=== PATIENT | female | born 1980 | race Caucasian/White ===

== ENCOUNTER → 2024-12-04 08:00 | Outpatient (BNV) | payer MEDICARE, SELFPAY | PROVIDERS: Visit Provider Psychiatry & Neurology Psychiatry | DX: F31.81 Bipolar II disorder (principal); F45.42 Pain disorder with related psychological factors | CPT/HCPCS: 90792; 99214 ==

== ENCOUNTER 2024-12-19 11:30 | Outpatient (RCR) | payer MEDICARE, SELFPAY ==
[2024-12-04 11:51] VITALS: BP 104/68; PULSE 64; TEMP 36.9
[2024-12-04 11:54] VITALS: BMI 18.2
--- NOTE | 2024-12-04 23:05 | P.HPPSP_ITS ---
HPI Date of Service: 12/04/24 Chief Complaint: persistant depressive disorder Sources of Information: patient interviewed, chart reviewed and crisis/core team assessment reviewed HPI Narrative: This is the 1st [facility] admission for this 44-year-old female with Bipolar depression, anxiety, ADHD, PTSD, and remote history of cocaine use in remission, complicated orthopedic hx with chronic neck and back pain (unclear etiology), who is being stepped down from IPLOC status post suicide attempt back in September. Patient reports that she had felt off for quite some time, reporting the only anxiety and depression but that she was having periods of feeling spacey and l ost in her head where intrusive thoughts of suicide were emerging. she reports symptoms were gradually worsening over several weeks which came to ahead when she went to see her outpatient treaters and told them that she felt off , after being dismissed once again following her therapy appointment she went home and intentionally, but impulsively, overdosed on her medications ( out of frustration ) which resulted in being medically hospitalized at [facility] for 5 days and then was transferred for psychiatric hospitalization at [facility] in [facility] from October 27 to November 01. She continues to struggle with depressed mood and anxiety since she was discharged she is really no better off than she was prior to hospitalization. Her mood continues to vary, somedays I am feeling okay some days and feeling bad again other days it varies. suicidal thoughts just \come out of nowhere... I will be cooking and my mind goes totally blank. my boyfriend catches me staring into space and zone out. she believes this is not a problem she has had in the past and denies developmental history for any attentional or focus issues. She is prescribed stimulant medications and is on Concerta 54 mg as well as Wellbutrin 400 mg/d both of which she says have been prescribed since 2000 for depression and low energy. she has also been on topiramate 300 mg/d for nerve pain since 2000 and says she feels none of these medications are particularly helpful to her aside from perhaps Concerta which without it she says she would not be able to get out of bed. gabapentin more recently was added to help with nerve pain but has not been able to tolerate more than 600 mg at bedtime. Medication has been helpful with sleep and improved appetite and some weight gain. She expresses frustration that she is on the same medication regime as she was prior to hospitalization and that no changes were made during either of her stays. I do not feel like these medications are working I keep telling everyone. Past Psychiatric History: IPLOC x1: [facility] at 09/2024 PHP: [facility] x1: 09/2024 intention overdose requiring medical admission SIB: Previous medications: Prozac, Zoloft, Celexa, Lexapro, Effexor, Viibryd, Abilify, Seroquel She is currently on wait list for Spravato Current medications: Wellbutrin 300 mg XL q.a.m. Wellbutrin 100 mg SR q.d. in afternoon Methylphenidate extended release 54 mg q.a.m. Lamotrigine 250 mg daily Gabapentin 600 mg q.h.s. Topiramate 150 mg b.i.d. Lorazepam Restasis Oxycodone 20 mg OxyContin 10 mg [facility] Medical History (Updated 12/10/24 @ 07:30 by Su Jang MD) Chronic neck pain Surgical History (Updated 12/04/24 @ 11:50 by Salma Rois RN) H/O spinal fusion Diagnostics Vital Signs (24Hr): Vital Signs - 24 hr 12/04/24 11:51 Temperature 98.4 F Pulse Rate 64 Blood Pressure 104/68 BMI result Body Mass Index 18.2 Meds/Allergies Meds Home Medications ?Medication ?Instructions ?Recorded ?Confirmed ?Type bupropion HCl 100 mg tablet,12 hr 100 mg PO DAILY 12/04/24 12/04/24 History sustained-release bupropion HCl 300 mg 24 hr tablet, 300 mg PO QAM 12/04/24 12/04/24 History extended release buspirone 15 mg tablet 15 mg PO BID 12/04/24 12/04/24 History cyclosporine 0.05 % eye drops in a 1 drp ophthalmic (eye) Q12H 12/04/24 12/04/24 History dropperette (Restasis) gabapentin 600 mg tablet 600 mg PO BEDTIME 12/04/24 12/04/24 History lamotrigine 200 mg tablet 200 mg PO DAILY 12/04/24 12/04/24 History lamotrigine 25 mg tablet 50 mg PO DAILY 12/04/24 12/04/24 History lorazepam 0.5 mg tablet 1.5 mg PO DAILY PRN Severe Anxiety 12/04/24 12/04/24 History and Panic methylphenidate HCl 54 mg 54 mg PO DAILY 12/04/24 12/04/24 History tablet,extended release 24 hr (Concerta) oxycodone 10 mg tablet,crush 10 mg PO BID 12/04/24 12/04/24 History resistant,extended release 12 hr (OxyContin) oxycodone 20 mg tablet 20 mg PO QID PRN severe pain 12/04/24 12/04/24 History Allergies Allergies Allergy/AdvReac Type Severity Reaction Status Date / Time azithromycin [AZITHROMYCIN] Allergy Unknown BLOATING, Unverified 04/17/20 19:04 ABD PAIN risperidone [From RISPERDAL] Allergy Unknown DID NOT Unverified 04/17/20 19:04 TOLERATE topiramate [Topamax] Allergy Unknown Verified 07/14/17 00:00 trazodone [TRAZODONE] Allergy Unknown DID NOT Unverified 04/17/20 19:04 TOLERATE Mental Status Exam Mental Status Exam Narrative: Alert, oriented, in no acute distress. Normal gait. Mild psychomotor agitation, and muscle tension, restlessness but remained seated for duraiton of encounter. Otherwise calm demeanor, cooperative somewhat guarded. Eye contact maintained. Mood depressed, affect constricted, irritable edge with mild lability. Speech normal. Thought process linear, coherent. Thought content related to stressors, transient helplessness, no hopelessness noted, denies SI, intention, urge or p kely. Denies any aggressive ideation or HI. No paranoia or delusional content elicited. No evidence of psychosis. Insight and judgment - fair but adequate Assessment & Plan Assessment & Plan (1) Bipolar II disorder: Status: Acute Code(s): F31.81 - Bipolar II disorder (2) Other stimulant use, unspecified with stimulant-induced mood disorder: Status: Acute Code(s): F15.94 - Other stimulant use, unspecified with stimulant-induced mood disorder (3) Pain disorder associated with psychological and physical factors: Status: Acute Code(s): F45.42 - Pain disorder with related psychological factors (4) PAMELLA (generalized anxiety disorder): Status: Acute Code(s): F41.1 - Generalized anxiety disorder (5) Cognitive and behavioral changes: Status: Acute Code(s): R41.89 - Other symptoms and signs involving cognitive functions and awareness; R46.89 - Other symptoms and signs involving appearance and behavior Assessment and Plan: r/o iatrogenic cognitive impairment (related to topiramate) (6) History of ADHD: Status: Acute Code(s): Z86.59 - Personal history of other mental and behavioral disorders (7) History of cocaine abuse: Status: Acute Code(s): F14.11 - Cocaine abuse, in remission Plan Admit to [facility] VS reviewed: afebrile, BP 104/68;?64 bpm lower dose of Topemax to 100 mg BID continue other regular medications? Routine lab work ordered as indicated EKG, routine for baseline QTc for medication considerations as indicated UDS as indicated [facility] reviewed - MPH 54 mg (dating back to 2022 or earlier); oxycodone IR 20 mg, fills #120/monthly (dating back to 2022 or earlier). Oxycontin ER 10 mg #60 monthly (previously rxed 30 mg up until 09/2023, on 10 mg since). Morphine ER 30 mg previously rxed 06/2023). DIazepam single script in 12/2022. Also Topiramate is listed under Allergies in chart, will clarify with patient Continue to monitor as per protocol Patient educated on: diagnosis, medication risk/benefits and medical condition Informed Consent: understands Reason for continued partial hosp. stay Substantial Risk for: inability to function, rapid decompensation and med/psych decompensation Certification I certify that partial hospital treatment is medically necessary due to the symptoms and problems resulting from the patient's mental illness and the failure to treat the patient at the partial hospital level of care would likely result in the patient requiring inpatient psychiatric care which could not be prevented at a less intensive level of care. Time Spent With Patient Time: Total time managing care of this patient today _90___ minutes.
--- NOTE | 2024-12-06 15:07 | HO.PHP ---
Clients case was opened and reviewed in teams today.
--- NOTE | 2024-12-13 18:15 | HO.PHPPROGNO ---
Subjective Subjective Date of Service: 12/12/24 Reason For Visit: persistant depressive disorder Interim History: Patient was seen for follow-up. She had approached staff asking to leave early, expressing frustration with her lack of progress. She tells me she is here because her family wants her here ?I just feel like I am getting baby-sat (following serious overdose and subsequent IPLOC). She continues to report that her medications are not helpful to her aside from the Concerta which she says she would not be able to function or get out of bed without. Still reports mood is very depressed with vague SI denies any intention urge or plan to harm self. She lowered topiramate as per plan, currently at 100 mg twice a day down from 150 mg twice a day. She has not notice any change in her anxiety or mood and would like to continue tapering. She was very focused on medications today. She is preoccupied with getting a lorazepam refill in reports having had difficulty obtaining the script through her PCP despite her PCP reportedly agreeing to continue prescribing her 1 in the morning and 2 for sleep. She was last seen by her psychiatrist Dr. Chavarria in October per [facility] last script was ordered and filled on July/2024. There is no current active prescription. Without speaking with her psychiatrist I am not comfortable refilling this medication as I am not I am unclear what his intention is. She continues on wait list for Spravato. She reached out in the interim was told the there still a wait list with least 20 people ahead of her. We discussed TMs as an alternative plan or at least something she could consider in the meantime which she says she is open to she was also open to starting Latuda. Denies thoughts of harming self or others. Medication Compliance: Yes Side effects from medications: No Attending Groups: Yes Review of Systems Acute medical concerns: No Mental Status Exam Mental Status Exam Narrative: Alert, oriented, in no acute distress. Normal gait. Mild psychomotor agitation, and muscle tension, restlessness but remained seated for duraiton of encounter. Otherwise calm demeanor, cooperative somewhat guarded. Eye contact maintained. Mood depressed, affect constricted, irritable edge with mild lability. Speech normal. Thought process linear, coherent. Thought content related to stressors, transient helplessness, no hopelessness noted, denies SI, intention, urge or plan. Denies any aggressive ideation or HI. No paranoia or delusional content elicited. No evidence of psychosis. Insight and judgment - fair but adequate Diagnostics Vital Signs (24Hr): BMI result Body Mass Index 18.2 Assessment & Plan Assessment & Plan (1) Bipolar II disorder: Status: Acute Code(s): F31.81 - Bipolar II disorder (2) Other stimulant use, unspecified with stimulant-induced mood disorder: Status: Acute Code(s): F15.94 - Other stimulant use, unspecified with stimulant-induced mood disorder (3) Pain disorder associated with psychological and physical factors: Status: Acute Code(s): F45.42 - Pain disorder with related psychological factors (4) PAMELLA (generalized anxiety disorder): Status: Acute Code(s): F41.1 - Generalized anxiety disorder (5) Cognitive and behavioral changes: Status: Acute Code(s): R41.89 - Other symptoms and signs involving cognitive functions and awareness; R46.89 - Other symptoms and signs involving appearance and behavior Assessment and Plan: r/o iatrogenic cognitive impairment (related to topiramate) (6) History of ADHD: Status: Acute Code(s): Z86.59 - Personal history of other mental and behavioral disorders (7) History of cocaine abuse: Status: Acute Code(s): F14.11 - Cocaine abuse, in remission Plan continue PHP referral placed for TMS start lurasidone 20 mg qd w supper x 2 days then increase as tolerated to 40 mg to target bipolar depression lower dose of Topemax to 150mg/d (split 100/50) x 3 days then to 50 mg BID continue Lamictal 250 mg qd continue Wellbutrin XL 300 mg qam continue Wellbutrin SR 100 mg qam continue COncerta 54 mg qam will consider further titrating Buspar 15 mg BID continue other regular medications: Restasis, oxycodone 10 mg BID, oxycodone 20 mg QID prn severe pain, Routine lab work ordered as indicated EKG, routine for baseline QTc for medication considerations as indicated VS reviewed: afebrile, BP 104/68;?64 bpm Continue to monitor Patient educated on: diagnosis, medication risk/benefits, substance abuse and TMS Informed Consent: understands Reason for contiued partial hosp. stay Substantial Risk for: inability to function and med/psych decompensation Certification I certify that partial hospital treatment is medically necessary due to the symptoms and problems resulting from the patient's mental illness and the failure to treat the patient at the partial hospital level of care would likely result in the patient requiring inpatient psychiatric care which could not be prevented at a less intensive level of care. Total time managing care of this patient today _30 ___ minutes. Discharge Plan Discharge Attending provider: Su Jang Medications: New lurasidone 40 mg tablet 40 mg PO QPM Qty: 20 0RF Rx Instructions: must administer with food (at least 350 calories) Continued lamotrigine 200 mg tablet 200 mg PO DAILY Rx Instructions: Last filled 11/27/24 bupropion HCl 100 mg Tablet Sustained-Release 12 Hr 100 mg PO DAILY buspirone 15 mg Tablet 15 mg PO BID Rx Instructions: Last filled 10/31/24 bupropion HCl 300 mg Tablet Extended Release 24 Hr 300 mg PO QAM Patient Comments: Patient stated she takes Bupropion 300 mg and 100 mg tab. According to Keith Goodman METAL SPONGE MAKING MACHINE OPERATOR medication list dated 11/14/24 that she provided us patient is on both medications. Pharmacy stated on 10/03/24 Keith Goodman inactivated the medication. Patient stated she was never told this and is currently taking 300 mg tab and 100 mg tab of Bupropion together. methylphenidate HCl [Concerta] 54 mg Tablet Extended Release 24hr 54 mg PO DAILY Rx Instructions: Last filled 11/27/24. gabapentin 600 mg tablet 600 mg PO BEDTIME Rx Instructions: Last filled 11/04/24 cyclosporine [Restasis] 0.05 % dropperette 1 drp ophthalmic (eye) Q12H Rx Instructions: Last filled September 2024. Changed topiramate 100 mg tablet 100 mg PO BID Qty: 30 0RF Rx Instructions: Medication currently waiting for apple picking supervisor at pharmacy. No Action lamotrigine 25 mg tablet 50 mg PO DAILY Rx Instructions: Last filled 10/03/24 #90. lorazepam 0.5 mg tablet 1.5 mg PO DAILY PRN (Reason: Severe Anxiety and Panic) Patient Comments: Patient stated her prescriber is waiting for a PA on this medication. Rx Instructions: Last filled 07/24 # 30 tabs. TAKE 3 TABLETS BY MOUTH EVERY DAY NEEDED oxycodone 20 mg tablet 20 mg PO QID PRN (Reason: severe pain) Rx Instructions: Last filled 11/09/24 oxycodone [OxyContin] 10 mg tablet,oral only,ext.rel.12 hr 10 mg PO BID Rx Instructions: Last filled 11/09/24 Print Language: Djiboutian
--- NOTE | 2024-12-17 10:16 | HO.PHPPROGNO ---
Subjective Subjective Date of Service: 12/17/24 Reason For Visit: persistant depressive disorder Healthcare Proxy: No Guardianship: No Medical Problems Affecting Mental Status: No Interim History: 44 yo -WF reports that struggling with not feeling helped by anything here- and why psychiatrist here decreased topamax decreased- Latuda was not tolerable - the depression is bad- had an ok weekend- not had in a long time- moments fine, next moment not- scary - doesn't know what to do - feels no strategies work - latuda 40mg nausea/dizzy and spacey - took it for 3 days- Continues to struggle with sleep as well - Medication Compliance: Yes Side effects from medications: Yes (nausea/dizziness) Attending Groups: Yes Review of Systems Acute medical concerns: No Review of Systems: as above Mental Status Exam Mental Status Exam Patient Appearance: Well Grooomed (casual) and Appropriate Patient Orientation: Person, Place, Time and Situation Level of Consciousness: Awake Patient Behavior: Guarded and Good Eye Contact Mood Description: Angry Affect Description: Blunted Patient Cognition Impaired: No Ability to Follow Directions: Good Speech Pattern: Clear Hallucinations: None Delusions: Not Present Perceptual Disturbances: Depersonalization Thought Process: Intact and Goal Oriented Thought Content: positive for Intact, positive for Goal Oriented and positive for Suicidal Ideation (no plan/intent) Depressive Symptoms: Increased Irritability and Difficulty Sleeping Judgement: Fair Diagnostics Vital Signs (24Hr): BMI result Body Mass Index 18.2 Assessment & Plan Assessment & Plan (1) Bipolar II disorder: Status: Acute Code(s): F31.81 - Bipolar II disorder (2) Pain disorder associated with psychological and physical factors: Status: Acute Code(s): F45.42 - Pain disorder with related psychological factors Plan Increased wellbutrin to 450mg from 400mg? - to address depression try taking lutada in pm with food at 20mg (will split the 40mg tabs) add Gabapentin 300mg to 600mg at bed to help sleep provider called [facility] left message to clarify lorazzepam rx that was sent in october and ? need for pay reviewed with patient risk combining with gabape, opiates and benzos- which is likely why it requires auth= and maybe other medications changes will help - with underlying factor Also recommend 1-2 more days in [facility] to check in with provider and see how this went Patient educated on: medication risk/benefits and therapeutic strategies Informed Consent: understands Reason for contiued partial hosp. stay Substantial Risk for: rapid decompensation Certification I certify that partial hospital treatment is medically necessary due to the symptoms and problems resulting from the patient's mental illness and the failure to treat the patient at the partial hospital level of care would likely result in the patient requiring inpatient psychiatric care which could not be prevented at a less intensive level of care. Total time managing care of this patient today ____ minutes. Discharge Plan Discharge Attending provider: Su Jang Medications: New bupropion HCl [Wellbutrin XL] 150 mg tablet extended release 24 hr 150 mg PO QAM MDD 450 30 Days Qty: 30 1RF lurasidone [Latuda] 20 mg tablet 20 mg PO QPM Qty: 1 0RF Rx Instructions: must administer with food (at least 350 calories) gabapentin 300 mg capsule 300 mg PO BEDTIME 30 Days Qty: 30 1RF Continued lamotrigine 200 mg tablet 200 mg PO DAILY Rx Instructions: Last filled 11/27/24 lamotrigine 25 mg tablet 50 mg PO DAILY Rx Instructions: Last filled 10/03/24 #90. buspirone 15 mg Tablet 15 mg PO BID Rx Instructions: Last filled 10/31/24 bupropion HCl 300 mg Tablet Extended Release 24 Hr 300 mg PO QAM Patient Comments: Patient stated she takes Bupropion 300 mg and 100 mg tab. According to Keith Goodman MAIL SORTING SUPERVISOR medication list dated 11/14/24 that she provided us patient is on both medications. Pharmacy stated on 10/03/24 Keith Goodman inactivated the medication. Patient stated she was never told this and is currently taking 300 mg tab and 100 mg tab of Bupropion together. methylphenidate HCl [Concerta] 54 mg Tablet Extended Release 24hr 54 mg PO DAILY Rx Instructions: Last filled 11/27/24. gabapentin 600 mg tablet 600 mg PO BEDTIME Rx Instructions: Last filled 11/04/24 cyclosporine [Restasis] 0.05 % dropperette 1 drp ophthalmic (eye) Q12H Rx Instructions: Last filled September 2024. Changed topiramate 100 mg tablet 50 mg PO BID Qty: 30 0RF Rx Instructions: Medication currently waiting for converter supervisor at pharmacy. Discontinued bupropion HCl 100 mg Tablet Sustained-Release 12 Hr 100 mg PO DAILY No Action lorazepam 0.5 mg tablet 1.5 mg PO DAILY PRN (Reason: Severe Anxiety and Panic) Patient Comments: Patient stated her prescriber is waiting for a PA on this medication. Rx Instructions: Last filled 07/24 # 30 tabs. TAKE 3 TABLETS BY MOUTH EVERY DAY NEEDED oxycodone 20 mg tablet 20 mg PO QID PRN (Reason: severe pain) Rx Instructions: Last filled 11/09/24 oxycodone [OxyContin] 20 mg Tablet,Oral Only,Ext.Rel.12 Hr 20 mg PO BID Rx Instructions: Last filled 12/09/24. Print Language: Yemeni
--- NOTE | 2024-12-19 11:00 | P.PNPSP_ITS ---
Subjective Subjective Date of Service: 12/19/24 Reason For Visit: persistant depressive disorder Healthcare Proxy: No Guardianship: No Medical Problems Affecting Mental Status: No Interim History: 44 reports only so much story tell- been here since 12/04 alot to do with son- 18 yo grad 12/31 looked up [facility]- do plan to call them - call them and see consultation with them = no drugs/etoh- nervouse about goign to wedding and flip flop latuda- no drinking- wondering about a drink no si phq 9 16 included intermittent si in last 2 wks- no plan/intent Medication Compliance: Yes Side effects from medications: No Attending Groups: Yes Review of Systems Acute medical concerns: No Medical Review of Systems: unchanged Mental Status Exam Mental Status Exam Patient Appearance: Well Grooomed and Appropriate Patient Orientation: Person, Place, Time and Situation Level of Consciousness: Awake Patient Behavior: Appropriate, Cooperative and Good Eye Contact Mood Description: Calm Affect Description: Flat Patient Cognition Impaired: No Ability to Follow Directions: Good Speech Pattern: Clear Hallucinations: None Delusions: Not Present Thought Process: Intact and Goal Oriented Thought Content: positive for Intact and positive for Goal Oriented Depressive Symptoms: Feelings of Worthlessness and Isolating-Friends/Family Judgement: Fair Diagnostics Vital Signs (24Hr): BMI result Body Mass Index 18.2 Assessment & Plan Assessment & Plan (1) Bipolar II disorder: Status: Acute Code(s): F31.81 - Bipolar II disorder (2) PAMELLA (generalized anxiety disorder): Status: Acute Code(s): F41.1 - Generalized anxiety disorder Plan Tolerating latuda 20mg in pm slept better with inc gabapentin to 900mg at [facility] (600mg from pain md 300mg from psych) also inc wellbutrin to total of 450mg xl in am (300mg plus 150mg) continues fairly negative about time here but feels can't go over her story again- phq 9 still moderately high- pt hoping to look into [facility] at [employer] Patient educated on: diagnosis, medication risk/benefits and therapeutic strategies Informed Consent: understands Reason for contiued partial hosp. stay Substantial Risk for: stable for discharge Certification I certify that partial hospital treatment is medically necessary due to the symptoms and problems resulting from the patient's mental illness and the failure to treat the patient at the partial hospital level of care would likely result in the patient requiring inpatient psychiatric care which could not be prevented at a less intensive level of care. Total time managing care of this patient today ____ minutes. Discharge Plan Discharge Attending provider: Su Jang Additional Instructions: fu with dr at [facility] 01/2025 fu with therapist Thursday 12/21 Medications: New bupropion HCl [Wellbutrin XL] 150 mg tablet extended release 24 hr 150 mg PO QAM MDD 450 30 Days Qty: 30 1RF lurasidone [Latuda] 20 mg tablet 20 mg PO QPM Qty: 1 0RF Rx Instructions: must administer with food (at least 350 calories) gabapentin 300 mg capsule 300 mg PO BEDTIME 30 Days Qty: 30 1RF lurasidone [Latuda] 20 mg tablet 20 mg PO QPM 30 Days Qty: 30 1RF Rx Instructions: must administer with food (at least 350 calories) Continued lamotrigine 200 mg tablet 200 mg PO DAILY Rx Instructions: Last filled 11/27/24 lamotrigine 25 mg tablet 50 mg PO DAILY Rx Instructions: Last filled 10/03/24 #90. buspirone 15 mg Tablet 15 mg PO BID Rx Instructions: Last filled 10/31/24 bupropion HCl 300 mg Tablet Extended Release 24 Hr 300 mg PO QAM Patient Comments: Patient stated she takes Bupropion 300 mg and 100 mg tab. According to Keith [facility] [employer] medication list dated 11/14/24 that she provided us patient is on both medications. Pharmacy stated on 10/03/24 Keith Goodman inactivated the medication. Patient stated she was never told this and is currently taking 300 mg tab and 100 mg tab of Bupropion together. methylphenidate HCl [Concerta] 54 mg Tablet Extended Release 24hr 54 mg PO DAILY Rx Instructions: Last filled 11/27/24. gabapentin 600 mg tablet 600 mg PO BEDTIME Rx Instructions: Last filled 11/04/24 cyclosporine [Restasis] 0.05 % dropperette 1 drp ophthalmic (eye) Q12H Rx Instructions: Last filled September 2024. Changed topiramate 100 mg tablet 50 mg PO BID Qty: 30 0RF Rx Instructions: Medication currently waiting for bean picker at pharmacy. Discontinued bupropion HCl 100 mg Tablet Sustained-Release 12 Hr 100 mg PO DAILY lorazepam 0.5 mg tablet 1.5 mg PO DAILY PRN (Reason: Severe Anxiety and Panic) Patient Comments: Patient stated her prescriber is waiting for a PA on this medication. Rx Instructions: Last filled 07/24 # 30 tabs. TAKE 3 TABLETS BY MOUTH EVERY DAY NEEDED No Action oxycodone 20 mg tablet 20 mg PO QID PRN (Reason: severe pain) Rx Instructions: Last filled 11/09/24 oxycodone [OxyContin] 20 mg Tablet,Oral Only,Ext.Rel.12 Hr 20 mg PO BID Rx Instructions: Last filled 12/09/24. Print Language: Stateless
== END 2024-12-19 23:59 | disposition home or self-care (01) ==
LOC: HO.PHPA 11:30
PROVIDERS: Visit Provider Psychiatry & Neurology Psychiatry
DX: F31.81 Bipolar II disorder (principal); F41.1 Generalized anxiety disorder; F45.42 Pain disorder with related psychological factors; F15.94 Other stimulant use, unspecified with stimulant-induced mood disorder; R41.89 Other symptoms and signs involving cognitive functions and awareness; F14.11 Cocaine abuse, in remission; Z86.59 Personal history of other mental and behavioral disorders; Z79.899 Other long term (current) drug therapy
CPT/HCPCS: 90791; 90853